=== PATIENT | male | born 1980 | race Asian ===

== ENCOUNTER 2017-08-26 13:12 | Emergency (ER) | payer SELFPAY ==
[~2017-08-26] VITALS: Ht 171.4 cm; Wt 63.3 kg
[2017-08-26 13:17] VITALS: BP 157/97
[2017-08-26 14:06] LABS: HEMATOCRIT 45.1 % (39.2-51.8); HEMOGLOBIN 15.4 g/dL (13.7-18.0); WHITE BLOOD COUNT 8.9 x10^3/uL (3.4-10)
[2017-08-26 14:18] LABS: BLOOD UREA NITROGEN 12 mg/dL (7-18)
== END 2017-08-26 16:18 | disposition home or self-care (01) ==
LOC: ED 15:30
DX: L03.115 Cellulitis of right lower limb (principal); M10.071 Idiopathic gout, right ankle and foot
CPT/HCPCS: 36415; 80048; 82040; 84550; 85025; 99285